=== PATIENT | male | born 1975 | race Caucasian/White ===

== ENCOUNTER 2017-09-01 20:34 | Emergency (ER) | payer BC ==
--- NOTE | 2017-09-01 20:40 | UC ---
Skin Complaint HPI - HPI Summary HPI Summary: 42 yo male presents with ?tick bite to right posterior leg. He tells me that earlier today he felt a tender raised spot on the back of his leg. Has been outdoors a lot and is worried this might be a tick. Here for evaluation. He is very anxious about this being a tick and potential lyme disease. - History of Current Complaint Hx Obtained From: Patient Onset/Duration: Sudden Onset Current Severity: Mild Pain Intensity: 2 Pain Scale Used: 0-10 Numeric <Boyd Prabhakar - Last Filed: 09/01/17 21:15> <Vinicius Vale - Last Filed: 09/03/17 14:46> - History of Current Complaint Time Seen by Provider: 09/01/17 20:40 Stated Complaint: TICK BITE - Allergy/Home Medications Allergies/Adverse Reactions: Allergies Allergy/AdvReac Type Severity Reaction Status Date / Time No Known Allergies Allergy Verified 09/01/17 20:51 Review of Systems Constitutional: Negative Skin: Other - ?tick bite right posterior thigh Respiratory: Negative Cardiovascular: Negative Neurovascular: Negative Musculoskeletal: Negative Neurological: Negative Psychological: Negative All Other Systems Reviewed And Are Negative: Yes <Boyd Prabhakar - Last Filed: 09/01/17 21:15> PMH/Surg Hx/FS Hx/Imm Hx - Additional Past Medical History Additional PMH: None Previously Healthy: Yes - Surgical History Surgical History: Yes Surgery Procedure, Year, and Place: wisdom teeth; finger reconstruction - Family History Known Family History: Positive: None - Social History Occupation: Employed Full-time Lives: With Family Alcohol Use: Occasionally Alcohol Amount: 2 beers 4 days a week Substance Use Type: None Smoking Status (MU): Former Smoker Type: Cigarettes Have You Smoked in the Last Year: No When Did the Patient Quit Smoking/Using Tobacco: 2001 - Immunization History Most Recent Influenza Vaccination: none Most Recent Tetanus Shot: 11/2012 Most Recent Pneumonia Vaccination: none <Boyd Prabhakar - Last Filed: 09/01/17 21:15> Physical Exam - Summary Physical Exam Summary: GENERAL: NAD. WDWN. No pain distress. SKIN: Right posterior thigh: there is a 7mm diameter of mild erythema and edema with central 2mm area of ecchymosis and blood blister. No streaking or drainage. NECK: Supple. Nontender. No lymphadenopathy. CHEST: No accessory muscle use. Breathing comfortably and in no distress. CV: RRR. Without m/r/g. NEURO: Alert. CN II-XII grossly intact. PSYCH: Age appropriate behavior. Triage Information Reviewed: Yes Vital Signs: Vital Signs: Temp Pulse Resp BP Pulse Ox 98.1 F 103 16 137/93 100 09/01/17 20:45 09/01/17 20:45 09/01/17 20:45 09/01/17 20:45 09/01/17 20:45 <Boyd Prabhakar - Last Filed: 09/01/17 21:15> Vital Signs: Initial Vital Signs Temp 98.1 F 09/01/17 20:45 Pulse 103 09/01/17 20:45 Resp 16 09/01/17 20:45 BP 137/93 09/01/17 20:45 Pulse Ox 100 09/01/17 20:45 <Vinicius Vale - Last Filed: 09/03/17 14:46> Course/Dx - Course Course Of Treatment: Area is consistent with recent tick bite. Will treat him with prophylactic doxycycline 200mg and have him monitor the area for bull's eye rash. - Diagnoses Provider Diagnoses: Tick bite <Boyd Prabhakar Last Filed: 09/01/17 21:15> Discharge - Sign-Out/Discharge Documenting (check all that apply): Discharge/Admit/Transfer - Billing Disposition and Condition Condition: STABLE Disposition: Home <Boyd Prabhakar Last Filed: 09/01/17 21:15> - Billing Disposition and Condition Condition: STABLE Disposition: Home <Vinicius Vale - Last Filed: 09/03/17 14:46> - Discharge Plan Condition: Stable Disposition: HOME Patient Education Materials: Lyme Disease (ED), Tick Bite (ED) Referrals: James Guardado MD [Primary Care Provider] - Additional Instructions: If you develop a fever, shortness of breath, chest pain, new or worsening symptoms - please call your PCP or go to the ED. Your blood pressure was high at todays visit. Please see your primary provider within 4 weeks for recheck and re-evaluation. TICK BITE: You have been bitten by a tick. Once the tick is removed, these "bites" usually cause no problems. Tick fever, tick paralysis, [place] Spotted fever, and Lyme disease are uncommon -- but you should mention this tick bite to your doctor if you develop unusual symptoms in the next several weeks. If you develop any of the following, please see your physician promptly: (1) Fever, chills, or generalized malaise associated with a headache. (2) A red round area at the site of the bite (or elsewhere) (3) Joint pain, joint swelling or generalized weakness. (4) Redness, swelling, or drainage at the site of the bite. Per institutional requirements, I have reviewed the chart, however, I was not consulted specifically or made aware of this patient by the above midlevel provider. I did not personally evaluate, interact with , or disposition this patient.
[2017-09-01 20:51] VITALS: BP 137/93
[2017-09-01] MEDS ORDERED: DOXYcycline CAP(*) 100 MG PO ONE (20:57)
== END 2017-09-01 21:15 | disposition home or self-care (01) ==
LOC: UCEAST 20:34
DX: S70.361A Insect bite (nonvenomous), right thigh, initial encounter (principal); Z87.891 Personal history of nicotine dependence; W57.XXXA Bitten or stung by nonvenomous insect and other nonvenomous arthropods, initial encounter; Y92.9 Unspecified place or not applicable
CPT/HCPCS: 99211; A9270-GY; G0463

== ENCOUNTER 2017-09-07 15:23 | Emergency (ER) | payer BC ==
[2017-09-07 17:12] VITALS: BP 127/84
[2017-09-07] MEDS ORDERED: DOXYcycline CAP(*) 100 MG PO ONE (17:49)
--- NOTE | 2017-09-07 19:40 | ED ---
Ronel Wolfe Jade, scribed for Gerry Grant MD on 09/07/17 at 1814 . Bite Injury/Animal - HPI Summary HPI Summary: Pt is a 42 y/o male who [place] [facility] [place]. He states he had a tick bite 1 week ago and came here for preventative 200 mg Doxycycline. Yesterday, another tick bit him on his left knee, and was only on for a few hours. Pt removed the tick himself. He denies any pain at the site, fever, shakes, chills, joint aches, or rash. - History of Current Complaint Chief Complaint: UCLowerExtremity Stated Complaint: TICK BITE Time Seen by Provider: 09/07/17 17:45 Hx Obtained From: Patient Onset of Injury: Happened days ago - 1 day ago Type of Bite: Wild Animal - Tick Has Animal Been Immunized?: No Severity Currently: None Pain Intensity: 0 Pain Scale Used: 0-10 Numeric Aggravating Factor(s): Nothing Alleviating Factor(s): Nothing Animal Available for Observation: No - Allergies/Home Medications Allergies/Adverse Reactions: Allergies Allergy/AdvReac Type Severity Reaction Status Date / Time No Known Allergies Allergy Verified 09/07/17 17:11 PMH/Surg Hx/FS Hx/Imm Hx Sensory History: Reports: Hx Contacts or Glasses Opthamlomology History: Reports: Hx Contacts or Glasses - Surgical History Surgery Procedure, Year, and Place: wisdom teeth; finger reconstruction Infectious Disease History: No Infectious Disease History: Denies: History Other Infectious Disease, Traveled Outside the [place] in Last 30 Days - Family History Known Family History: Positive: None - Social History Alcohol Use: Occasionally Alcohol Amount: 2 beers 4 days a week Substance Use Type: Reports: None Smoking Status (MU): Former Smoker Type: Cigarettes Have You Smoked in the Last Year: No Review of Systems Negative: Fever, Chills Negative: Arthralgia Positive: Other - NEGATIVE pain at tick site. Negative: Rash All Other Systems Reviewed And Are Negative: Yes Physical Exam - Summary Physical Exam Summary: Appearance: Well appearing, no pain distress Skin: warm, dry, reflects adequate perfusion. 3 mm scabbed circular area at the left proximal fibula. No rash. Head/face: normal Eyes: EOMI, HECTOR ENT: normal Neck: supple, non-tender Respiratory: CTA, breath sounds present Cardiovascular: RRR, pulses symmetrical Abdomen: non-tender, soft Bowel Sounds: present Musculoskeletal: normal, strength/ROM intact. No joint swelling. Neuro: normal, sensory motor intact, A&Ox3 Triage Information Reviewed: Yes Vital Signs On Initial Exam: Initial Vitals Temp Pulse Resp BP Pulse Ox 99.2 F 81 18 127/84 100 09/07/17 17:08 09/07/17 17:08 09/07/17 17:08 09/07/17 17:08 09/07/17 17:08 Vital Signs Reviewed: Yes Diagnostics - Vital Signs Vital Signs Temp Pulse Resp BP Pulse Ox 09/07/17 17:08 99.2 F 81 18 127/84 100 - Laboratory Lab Statement: Any lab studies that have been ordered have been reviewed, and results considered in the medical decision making process. Bite Injury Course/Dx - Course Course Of Treatment: Patient with tick that was fully removed by the patient. No fever, rash, etc. Tick attached only for several hours. Prophylactic dose of doxycycline given here. - Diagnoses Provider Diagnosis: Tick bite Discharge - Sign-Out/Discharge Documenting (check all that apply): Discharge/Admit/Transfer - Discharge Plan Condition: Good Disposition: HOME Patient Education Materials: Tick Bite (ED) Referrals: James Guardado MD [Primary Care Provider] - Additional Instructions: Return with fever, rash, joint aches, worse or other concerns. Dress the wound with Neosporin or bacitracin ointment. - Billing Disposition and Condition Condition: GOOD Disposition: Home The documentation as recorded by the Ronel robbins Jade accurately reflects the service I personally performed and the decisions made by , Gerry Grant MD.
== END 2017-09-07 17:57 | disposition home or self-care (01) ==
LOC: UCEAST 15:23
DX: S80.262A Insect bite (nonvenomous), left knee, initial encounter (principal); W57.XXXA Bitten or stung by nonvenomous insect and other nonvenomous arthropods, initial encounter; Y93.9 Activity, unspecified; Y92.9 Unspecified place or not applicable; Z87.891 Personal history of nicotine dependence
CPT/HCPCS: 99212; A9270-GY; G0463